=== PATIENT | female | born 1965 | race Caucasian/White ===

== ENCOUNTER → 2017-09-04 | Outpatient (CLI) | payer OTHER ==
[~2017-09-04] MED LIST: IBUP-1484 PO; NAPR220T77 PO; NORE1TAB11 PO
== END | disposition home or self-care (01) ==
LOC: CFH 13:23
PROVIDERS: ATTEND Obstetrics & Gynecology Female Pelvic Medicine and Reconstructive Surgery
DX: Z12.31 Encounter for screening mammogram for malignant neoplasm of breast (principal); Z85.3 Personal history of malignant neoplasm of breast; Z90.12 Acquired absence of left breast and nipple; Z92.21 Personal history of antineoplastic chemotherapy
CPT/HCPCS: G0202

== ENCOUNTER 2018-09-12 09:20 | Outpatient (CLI) | payer OTHER | END 2018-09-19 09:31 | disposition home or self-care (01) | LOC: CFH 09:20 | PROVIDERS: ATTEND Obstetrics & Gynecology Female Pelvic Medicine and Reconstructive Surgery | DX: Z12.31 Encounter for screening mammogram for malignant neoplasm of breast (principal); Z85.3 Personal history of malignant neoplasm of breast | CPT/HCPCS: 77063; 77067 ==

== ENCOUNTER → 2019-04-11 | Outpatient (CLI) | payer BC, OTHER | END | disposition home or self-care (01) | LOC: CFH 14:43 | PROVIDERS: ATTEND Pathology Hematology | DX: M85.89 Other specified disorders of bone density and structure, multiple sites (principal); C50.912 Malignant neoplasm of unspecified site of left female breast | CPT/HCPCS: 77080 ==

== ENCOUNTER → 2020-11-09 | Outpatient (CLI) | payer OTHER ==
[~2020-11-09] MED LIST changes: -IBUP-1484 PO; +IBUP-1902 PO
== END | disposition home or self-care (01) ==
LOC: CFH 12:08
PROVIDERS: ATTEND Pathology Hematology
DX: Z12.31 Encounter for screening mammogram for malignant neoplasm of breast (principal)
CPT/HCPCS: 77063; 77067